=== PATIENT | female | born 1945 | race Caucasian/White ===

== ENCOUNTER 2017-12-26 08:15 | Day surgery (SDC) | payer MEDICARE, OTHER ==
[~2017-12-26] VITALS: Ht 162.6 cm; Wt 60.8 kg
[~2017-12-26 08:15] MED LIST: COZAAR25 MG PO; MONTELUKAST SOD10 MG PO
--- NOTE | 2017-12-26 09:43 | NUR ---
12/26/17 0943 Rabia Servin 0991-PATIENT ARRIVED TO PACU ON 2L NC O2 SAT 93% PATIENT DROWSY DENIES PAIN OR NAUSEA. LAYING LEFT LATERAL. ABDOMEN SOFT. ENCOURAGED TO PASS FLATUS.
--- NOTE | 2017-12-27 08:39 | OR ---
[facility] [address], [place] [address] Signed DATE OF OPERATION: 12/26/2017 SURGEON: Annalee Forte MD PREOPERATIVE DIAGNOSIS: Guaiac-positive stool. POSTOPERATIVE DIAGNOSES: 1. An 8 mm polyp at 20 cm. 2. Moderate internal and external hemorrhoids. PROCEDURE: Colonoscopy with snare polypectomy. ESTIMATED BLOOD LOSS: None. INDICATIONS: Kamar is a 72-year-old female who was asked to see me for a colonoscopy due to her quite positive stool. She told me she has no lower GI complaints. She has never had a previous colonoscopy. There is no family history of colon cancer or polyps. However, her did go through colonoscopy, so she is familiar with the process. In the office, I gave her a pamphlet on colonoscopy and we looked at that together along with the risks including, but not limited to gas bloating, crampy abdominal pain, bleeding, perforation, requiring surgery, and missed diagnosis. We also discussed the need for IV conscious sedation. She had expressed understanding and wish to proceed. PROCEDURE NOTE: Kamar was taken into our endoscopy suite and placed in the left lateral decubitus position. She was given 5 mg of Versed and 100 mcg of fentanyl to cover the case. A digital rectal exam was performed and she does have minimal to moderate external hemorrhoids, the right little more than the left. The adult colonoscope was then introduced and advanced all around into the cecum under direct visualization of camera. It took some abdominal compression and some additional medication to get the scope right into the cecum itself. She had a good prep. We were able to suction out a couple of areas of liquid stool matter. We could easily see the Crohn's foot. The scope was then slowly withdrawn. We had taken pictures throughout for photodocumentation. We found an 8 mm polyp at 20 cm. It was easily removed with the snare. I captured it on the end of the scope and sent it off for pathology. The rectum was unremarkable. Upon retroflexion of scope, she does have some [id number] internal hemorrhoid Electronically Signed By: ANNALEE FORTE MD 12/27/17 0839 PATIENT NAME: KAMAR PARIKH OPERATIVE REPORT DATE OF : 45 REPORT #: [id number] PHYSICIAN: ANNALEE FORTE MD PCP: SLICK DENIS MD REPORT IS CONFIDENTIAL AND NOT TO BE RELEASED WITHOUT AUTHORIZATION [facility] [address] [place], [place] [address] Signed columns. After this, the gas was suctioned out and the colonoscope removed. Kamar tolerated the procedure quite well. RECOMMENDATIONS: I will see Kamar back in my office in 7 to 14 days to review her results. MD CARROLL Ramsey/JONATHANL /[id number] cc: MD Annalee Norton MD Copies: SLICK DENIS MD, ANDREW L MD ~ Electronically Signed By: ANNALEE FORTE MD 12/27/17 0839 PATIENT NAME: KAMAR PARIKH RYAN OPERATIVE REPORT DATE OF : 45 REPORT #: [id number] PHYSICIAN: ANNALEE FORTE MD PCP: SLICK DENIS MD REPORT IS CONFIDENTIAL AND NOT TO BE RELEASED WITHOUT AUTHORIZATION
== END 2017-12-26 10:25 | disposition home or self-care (01) ==
LOC: DS 08:15 → OPS 08:15
PROVIDERS: Colon & Rectal Surgery
PROC: 0DBE8ZZ Excision of Large Intestine, Via Natural or Artificial Opening Endoscopic (ICD-10-PCS; principal; 2017-12-26 09:45)
DX: D12.6 Benign neoplasm of colon, unspecified (principal); K64.8 Other hemorrhoids; K64.4 Residual hemorrhoidal skin tags; K63.5 Polyp of colon; Z88.0 Allergy status to penicillin; Z88.2 Allergy status to sulfonamides; Z79.899 Other long term (current) drug therapy
CPT/HCPCS: 88305; 99153; G0500; J2250; J3010; J7120

== ENCOUNTER 2021-11-15 10:20 | Day surgery (SDC) | payer MEDICARE, OTHER ==
[~2021-11-15] VITALS: Ht 162.6 cm; Wt 53.6 kg
[~2021-11-15 10:20] MED LIST changes: +BENADRYL25 MG PO; +BENZONATATE100 MG PO; +MAGNESIUM100 MG PO; +VITAMIN C100 MG PO; +VITAMIN D310 MC4 PO; +ZINC50 MG PO
--- NOTE | 2021-11-15 12:58 | NUR ---
11/15/21 1258 Cecelia Laguerre 1216 PT ARRIVED IN PACU SLEEPY WITH NO C/O'S. 1225 REPOSITIONED TO BACK. SITTING UP SIPPING ON WATER. 1235 GETTING DRESSED. 1240 DC INSTRUCTIONS GIVEN. ALL QUESTIONS ANSWERED.
--- NOTE | 2021-11-17 14:17 | PATH ---
[facility] [address] [place], [place] [address] Signed SPECIMEN(S): A BONE MARROW - CORE SPECIMEN(S): B BONE MARROW - ASPIRATION SPECIMEN(S): C FLOW CYTOMETRY IN BM EDTA CLINICAL HISTORY: Bone marrow biopsy. 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 See attached. 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 Peripheral blood - Neutropenia, absolute neutrophils count 0.8 K/uL. - Mild normocytic, normochromic anemia. - Relative lymphocytosis with large granular lymphocytes present. B. Bone marrow aspirate smears, clot section cell block and trephine biopsy: - Hypercellular bone marrow with increased number of T-cells with atypical phenotype. - Negative for morphologic features of myelodysplastic syndrome (MDS). - Negative for morphologic features of myeloproliferative neoplasm (MPN). - Negative for increased number of plasma cells or infiltrative bone marrow processes. - Please see Diagnostic Comment. DIAGNOSTIC COMMENT: Morphologic evaluation of bone marrow is significant for increased number of T-cells, estimated to comprise up to 20% of bone marrow cellularity. The T-cells show abnormal phenotype by immunohistochemistry with partial loss of CD7 and CD5 expression. Concurrent flow cytometry also identified atypical population with aberrant attenuate expression of CD2, CD5, and CD7. No monotypic B-cells are detected. Peripheral blood evaluation demonstrates relative lymphocytosis with large granular lymphocytes present. 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 T-cell rearrangement studies will be helpful for further assessment and confirmation. Cytogenetics and T-cell rearrangement studies are pending, and result will be reported in an addendum NA:caw:C2NR PERIPHERAL BLOOD: PATIENT NAME: KAMAR PARIKH PATHOLOGY DATE OF : 45 REPORT #: [id number] PHYSICIAN: [facility]YLE PATHOLOGY PCP: SLICK DENIS MD REPORT IS CONFIDENTIAL AND NOT TO BE RELEASED WITHOUT AUTHORIZATION [facility] [address] [place], [place] [address] Signed HEMOGRAM ([facility], 11/15/2021): WBC 5.9 K/uL, RBC 3.60 M/uL, HGB 11.4 g/dL, HCT 32.7%, MCV 90.8 fL, MCH 31.7 pg, MCHC 35.0 g/dL, RDW 17.4%, PLT 257 K/uL, MPV 8.7 fL. DIFFERENTIAL COUNT (automated): 14.2% neutrophils, 75.6% lymphocytes, 8.3% monocytes, 1.2% eosinophils, 0.7% basophils. Absolute neutrophil count is 0.8 K/uL. Absolute lymphocyte count is 4.4 K/uL. Review of peripheral blood smear and CBC data demonstrates that the RBCs are decreased in number with mild normocytic, normochromic anemia present. No rouleaux formation is identified. The WBCs are normal in number with neutropenia and relative lymphocytosis noted. The lymphocytes show a spectrum of variable morphology with many having abundant cytoplasm and slightly open chromatin. The neutrophils show unremarkable morphology. The platelets are normal in number and unremarkable in morphology. BONE MARROW: BONE MARROW ASPIRATE SMEARS: The bone marrow aspirate smears are paucicellular with few scanty bone marrow particles present. Trilineage progressive hematopoiesis is present. No increase in blasts is noted. The M:E ratio appears decreased with relative erythroid hyperplasia noted. The lymphocytes are slightly increased in number, comprising 18% of marrow cellularity, and are mature in morphology. The megakaryocytes are scattered and appear normal in number and morphology. BONE MARROW DIFFERENTIAL: 2% blasts, 7% myelocytes, 17% segmented neutrophils, 20% lymphocytes, 3% monocytes, 5% eosinophils, 1% plasma cells and 45% erythroid. BONE MARROW CORE BOIPSY AND CLOT SECTION: The bone marrow core biopsy demonstrates hypercellular bone marrow for age with an average cellularity of 65%. Trilineage hematopoiesis is present with morphologic characteristics as described above. There are no lymphoid aggregates present. No granulomas or metastatic tumor cells identified. No increased number of plasma cells is noted. The megakaryocytes are scattered and appear normal in number and distribution. The clot section shows similar findings. SPECIAL STAINS (with appropriate reactive controls): - Iron (aspirate smears): Decreased storage iron; negative for ring sideroblasts. - Iron (block B1): Absent. - Reticulin stain (block A1): Minimal increase in bone marrow reticulin fibrosis. PATIENT NAME: KAMAR PARIKH PATHOLOGY DATE OF : 45 REPORT #: [id number] PHYSICIAN: DOYLE LYONS PCP: SLICK DENIS MD REPORT IS CONFIDENTIAL AND NOT TO BE RELEASED WITHOUT AUTHORIZATION [address] [address] Signed IMMUNOHISTOCHEMICAL STAINS (block A1 with appropriate reactive controls): - CD34: Highlights scattered positive cells with no increase in blasts noted. - CD117: Highlights scattered positive cells with no increase in blasts noted. - Myeloperoxidase: Highlights myeloid precursors. - CD71: Highlights erythroid precursors and confirms slight erythroid hyperplasia. - Factor VIII: Highlights megakaryocytes. - CD3: Highlights T-cells, slightly increased (20%). - CD5: Highlights T-cells (10%). - CD7: Highlights T-cells (5%). - CD4: Highlights T-cells and monocytic cells. - CD8: Highlights T-cells (10%). NA:caw FLOW CYTOMETRY: Bone marrow aspirate, flow cytometry analysis: - Atypical mature T-cell population is detected. - No atypical B-cell population. - See Comment. COMMENT: Atypical T-cell population is detected (65% of lymphocytes, 29% of total events) with aberrant attenuate expression of CD2, CD5, CD7, CD8 (subset negative), CD57 (subset negative) and absent expression of CD4 and CD56. 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 Correlation with clinical, morphologic, and molecular findings is recommended for further assessment. FLOW CYTOMETRY ANALYSIS: FLOW DIFFERENTIAL (% Total CD45 vs. SSC gating): Myeloid 45%; Lymphoid 43%; Monocyte 5%; Dim CD45/Blast: 0.7%. Cell Count: 6.2 x 10*3/uL. POPULATION ANALYSIS: BLASTS: Analysis of the dim CD45 gate demonstrates 0.7% myeloblasts by CD34/CD117. LYMPHOID CELLS: The lymphocyte gate comprises 43% of total events and includes 97% T-cells with a CD4:CD8 ratio of 0.3:1. An atypical T-cell population is detected (65% of lymphocyte, 29% of total events) demonstrating dimmer expression with CD2, CD5 and CD7; normal moderate expression with CD3 and CD45; dim, variable CD8 (subset negative) and CD38; moderate CD16; variable CD57 (subset negative); and absent expression with CD4 and CD56. 0.3% of lymphocytes are PATIENT NAME: AKMAR PARIKH PATHOLOGY DATE OF : 45 REPORT #: [id number] PHYSICIAN: [facility]YLE PATHOLOGY PCP: SLICK DENIS MD REPORT IS CONFIDENTIAL AND NOT TO BE RELEASED WITHOUT AUTHORIZATION [facility] [address] [place], [place] [address] Signed polyclonal B-cells with a kappa:lambda ratio of 2.2:1. The remainders are NK-cells. MYELOID CELLS: The myeloid population comprises 45% of the total events. No aberrant or immature immunophenotypic expression is detected. MONOCYTES: The monocyte population comprises 5% of the total events. Monocytes are not increased. No aberrant immunophenotypic expression is detected. PLASMA CELLS: 0.5% plasma cells are detected in the screening gate neg-dimCD45/CD38. Plasma cells are CD45 dim and positive for CD19. ANTIBODIES USED: Initial Antibodies Used: KAPPA, LAMBDA, CD20, CD10, CD19, CD23, CD38, CD16, CD56, CD8, CD5, CD2, CD4, CD7, CD3, CD14, CD33, CD13, HLADR, CD34, CD117, CD15, CD45. Additional Antibodies (necessary for further analysis of T/NK lymphocytes): CD57. Total Antibodies Used: 24. TCS FINAL DIAGNOSIS PERFORMED BY: Kenia Marlow MD, FACP, Nov 16 2021 12:58PM T-CELL (GAMMA) GENE REARRANGEMENT PCR ANALYSIS: Pending, to be reported by addendum. GROSS DESCRIPTION: Two specimens are received in two containers, labeled "DL." A. The specimen, labeled "DL, core," is received in formalin and consists of one core of red-pink bone (1.0 cm in length x 0.2 cm diameter). The specimen is submitted entirely in cassette (A1) following decalcification in Immunocal. B. The specimen, labeled "DL, clot," is received in formalin and consists of a portion of red-brown clot (2.0 x 1.4 x 0.3 cm in aggregate). The specimen is submitted entirely in cassette (B1). AC (under the direct supervision of a pathologist) The Gross Description was prepared using a voice recognition system. The report was reviewed for accuracy; however, sound-alike word errors, addition and/or deletions may occur. If there is any question about this report, please contact Client Services. ADDITIONAL NOTES: Immunohistochemical and/or in situ hybridization studies were performed on this case with the appropriate positive controls that react as expected. This test was developed and its performance characteristics determined by [facility]. It has not been cleared or PATIENT NAME: KAMAR PARIKH PATHOLOGY DATE OF : 45 REPORT #: [id number] PHYSICIAN: DOYLE PATHOLOGY PCP: SLICK DENIS MD REPORT IS CONFIDENTIAL AND NOT TO BE RELEASED WITHOUT AUTHORIZATION [facility] [address] [place] [id number] Signed approved by the U.S. Food and Drug Administration. The FDA has determined that such clearance or approval is not necessary. This test is used for clinical purposes. It should not be regarded as investigational or for research. [facility] is certified under the Clinical Laboratory Improvement Amendments of 1988 (CLIA) as qualified to perform high complexity clinical laboratory testing. This assay has not been validated for specimens that have been decalcified. In this case, certain antibodies were performed by both immunohistochemistry and flow cytometry analysis because flow cytometry analysis did not fully explain all the light microscopic findings. Immunohistochemistry aided in the analysis. Both methods are deemed medically necessary in this case. This test was developed and its performance characteristics determined by [facility]. It has not been cleared or approved by the US Food and Drug Administration. The FDA does not require this test to go through premarket FDA review. This test is used for clinical purposes. It should not be regarded as investigational or for research. This laboratory is certified under the Clinical Laboratory Improvement Amendments (CLIA) as qualified to perform high complexity clinical laboratory testing. PERFORMING LABORATORY: The technical component was performed by [facility], [address] [place] [id number] (CLIA#: [id number]). Professional interpretation was performed by [facility] [address] (CLIA#: [id number]). The technical component was performed by [facility], [address] [place] [id number] (CLIA# [id number]). Professional interpretation was performed by [facility] [address] (CLIA#: [id number]). IMAGES: [id number]: [id number]: [id number] Diagnostician: Kenia Marlow MD, FACP Pathologist Electronically Signed 11/17/2021 PATIENT NAME: KAMAR PARIKH PATHOLOGY DATE OF : 45 REPORT #: [id number] PHYSICIAN: DOYLE LYONS PCP: SLICK DENIS MD REPORT IS CONFIDENTIAL AND NOT TO BE RELEASED WITHOUT AUTHORIZATION [address] [address] Signed Copies: ~ PATIENT NAME: KAMAR PARIKH PATHOLOGY DATE OF : 45 REPORT #: [id number] PHYSICIAN: [facility] PATH[facility] PCP: SLICK DENIS MD REPORT IS CONFIDENTIAL AND NOT TO BE RELEASED WITHOUT AUTHORIZATION
== END 2021-11-15 12:40 | disposition home or self-care (01) ==
LOC: OPS 10:20 → DS 10:20 → OPS 12:00 → DS 12:00 → OPS 12:40
PROVIDERS: ATTEND Specialist
PROC: 079T3ZX Drainage of Bone Marrow, Percutaneous Approach, Diagnostic (ICD-10-PCS; 2021-11-15)
PROC: 07DR3ZX Extraction of Iliac Bone Marrow, Percutaneous Approach, Diagnostic (ICD-10-PCS; principal; 2021-11-15 12:00)
DX: C91.10 Chronic lymphocytic leukemia of B-cell type not having achieved remission (principal); I10 Essential (primary) hypertension
CPT/HCPCS: 36415; 85025; J7121